=== PATIENT | female | born 1960 ===

== ENCOUNTER 2018-05-14 09:52 | Inpatient (IN) | payer OTHER ==
[~2018-05-14] VITALS: Ht 165.1 cm; Wt 82.1 kg
[2018-05-14] MEDS ORDERED: SYNTHROID50 MCG PO (12:28)
[2018-05-14] MEDS ORDERED: PRILOSEC OTC20 MG PO (12:28)
[2018-05-14] MEDS ORDERED: LIPITOR20 MG PO (12:28)
[2018-05-14] MEDS ORDERED: VENTOLIN HFA18 GM IH (12:29)
[2018-05-14] MEDS ORDERED: ZANTAC300 MG PO (12:29)
[2018-05-14] MEDS ORDERED: SINGULAIR 10MG10 MG PO (12:29)
[2018-05-22] MEDS ORDERED: POLY119PG PO (06:54)
[2018-05-22] MEDS ORDERED: IBUPROFEN800 MG PO (06:54)
[2018-05-22] MEDS ORDERED: GABAPENTIN600 MG PO (06:54)
[2018-05-22] MEDS ORDERED: GAS RELIEF125 MG PO (06:54)
== END 2018-05-22 09:43 | DRG 743 ==
LOC: O/R 05-20 05:12 → OB/GYN 05-20 10:45 → SURH 05-20 12:45 → OB/GYN 05-22 09:43
PROVIDERS: ADMIT Obstetrics & Gynecology
PROC: 0UT70ZZ Resection of Bilateral Fallopian Tubes, Open Approach (ICD-10-PCS; 2018-05-20)
PROC: 0UT90ZZ Resection of Uterus, Open Approach (ICD-10-PCS; principal; 2018-05-20 12:45)
DX: D27.1 Benign neoplasm of left ovary (principal); N83.311 Acquired atrophy of right ovary; N72 Inflammatory disease of cervix uteri